=== PATIENT | male | born 1945 | race Caucasian/White ===

== ENCOUNTER 2020-09-19 18:44 | Emergency (ER) | payer OTHER ==
[2020-09-19 18:53] VITALS: TEMP 98.8; BMI 36.2
[2020-09-19] MEDS ORDERED: ACETAMINOPHEN 325 MG TABLET (FP) PO ONE (19:31)
[2020-09-19] MEDS ORDERED: ACETAMINOPHEN 325 MG TABLET (FP) ONE (19:35)
[2020-09-19 20:51] VITALS: BP 144/75; PULSE 73
== END 2020-09-19 21:53 | disposition home or self-care (01) ==
LOC: FER 18:44
DX: M25.561 Pain in right knee (principal)
CPT/HCPCS: 70450-TC; 73562-TC-LT-FY; 73562-TC-RT-FY; 99284-25